=== PATIENT | female | born 1945 | race Caucasian/White ===

== ENCOUNTER 2017-12-19 09:14 | Outpatient (CLI) | payer MEDICARE, BC ==
--- NOTE | 2017-12-19 13:31 | ULT ---
BILATERAL RENAL SONOGRAM: Date: 12/19/17 HISTORY: Chronic kidney disease. FINDINGS: The right kidney measures 10.5 cm x 5.7 cm. The left kidney measures 10.2 cm x 4.9 cm. There is a small, 1.2 cm, anechoic structure seen within the mid portion of the right kidney, likely related to small cyst. There is otherwise no evidence of renal mass, renal calculus, or hydronephrosi s involving the kidneys bilaterally. The urinary bladder is incompletely distended, but grossly normal in appearance. Pre-void urinary justyn dder volume is 13.9 mL with post-void urinary bladder volume of 3 mL. IMPRESSION: Small right renal cyst. Kidneys otherwise have a normal sonographic appearance without evidence of hy dronephrosis. No renal cortical thinning is present. POS: [facility]
== END 2017-12-19 09:15 | disposition home or self-care (01) ==
LOC: MADLAB 09:14
PROVIDERS: ATTEND Internal Medicine Nephrology
DX: N18.3 Chronic kidney disease, stage 3 (moderate) (principal); N28.1 Cyst of kidney, acquired
CPT/HCPCS: 76770